=== PATIENT | female | born 1995 | race Caucasian/White ===

== ENCOUNTER 2018-07-22 10:15 | Emergency (ER) | payer BC, OTHER ==
[~2018-07-22] VITALS: Wt 69.8 kg
[~2018-07-22 10:15] MED LIST: LEVO175T2 PO
[2018-07-22] MEDS ORDERED: LIDOCAINE 4% CR TOP ONE (11:30)
--- NOTE | 2018-07-22 11:31 | ERD ---
ER Documentation Chief Complaint Chief Complaint SYNCOPE TODAY, HAS LEFT EYE LID LAC HPI 23-year-old female, with history of anemia, presents to the emergency department with her mother, for evaluation of a near fainting episode that occurred in the morning, when the patient woke up to go to the restroom, the event lasted less than 10 seconds, losing balance and hitting the left eyelid. The patient denies any preceding chest pain, palpitations, shortness of breath. No history of previous episodes. The patient denies any personal history of cardiac arrhythmias, neurologic disorders. No family history of heart disease or pre mature . ROS All systems reviewed and are negative except as per history of present illness. Medications Home Meds Active Scripts Acetaminophen* (Tylenol*) 325 Mg Tablet, 2 TAB PO Q6 PRN for PAIN AND OR ELEVATED TEMP, #20 TAB Prov:MONIKA CRUZ MD 07/22/18 Ferrous Sulfate* (Ferrous Sulfate*) 325 Mg Tabec, 325 MG PO BID for 30 Days, #60 TAB Prov:MONIKA CRUZ MD 07/22/18 Reported Medications Levothyroxine Sodium* (Synthroid*) 175 Mcg Tablet, 1 TAB PO DAILY 02/18/11 Allergies Allergies: Coded Allergies: No Known Allergy (Unverified , 06/24/13) PMhx/Soc Medical and Surgical Hx: pt denies Surgical Hx Hx Alcohol Use: No Hx Substance Use: No Hx Tobacco Use: No Smoking Status: Never smoker FmHx Family History: No diabetes, No coronary disease Physical Exam Vitals Vital Signs Date Temp Pulse Resp B/P (MAP) Pulse Ox O2 O2 Flow FiO2 Time Delivery Rate 07/22/18 98.3 81 18 103/78 99 Room Air 13:45 (86) 07/22/18 98.1 95 18 108/75 99 10:23 (86) Physical Exam Patient alert, oriented, vital signs stable. HEAD: Normocephalic, atraumatic. EYES: PERRLA, EOMI, Sclera and conjunctiva appear normal. Left eyelid with 1 cm linear laceration. NOSE: Clear and patent nostrils. EARS: Canals clear, tympanic membranes WNL. MOUTH: normal lips and tongue, no oral lesions. THROAT: Normal oropharynx, no tonsillar exudates. NECK: Supple, No lymphadenopathy. Full ROM without pain or tenderness. HEART: RRR, no rubs, murmurs, clicks or gallops. LUNGS: Clear to auscultation. ABDOMEN: Soft, non-tender without masses or hepatosplenomegaly. EXTREMITIES: No edema bilaterally. BACK: Full ROM, no deformity, normal back exam NEURO: Cranial nerves grossly intact, no motor or sensory deficit SKIN: No rashes, no petechia. Result Diagram: 07/22/18 1208 07/22/18 1208 Results 24 hrs Laboratory Tests Test 07/22/18 12:08 White Blood Count 5.9 10^3/ul Red Blood Count 3.01 10^6/ul Hemoglobin 9.0 g/dl Hematocrit 28.0 % Mean Corpuscular Volume 93.0 fl Mean Corpuscular Hemoglobin 29.9 pg Mean Corpuscular Hemoglobin Concent 32.1 g/dl Red Cell Distribution Width 15.5 % Platelet Count 186 10^3/UL Mean Platelet Volume 12.2 fl Immature Granulocytes % 0.200 % Neutrophils % 66.3 % Lymphocytes % 26.4 % Monocytes % 5.6 % Eosinophils % 0.7 % Basophils % 0.8 % Nucleated Red Blood Cells % 0.0 /100WBC Immature Granulocytes # 0.010 10^3/ul Neutrophils # 3.9 10^3/ul Lymphocytes # 1.6 10^3/ul Monocytes # 0.3 10^3/ul Eosinophils # 0.0 10^3/ul Basophils # 0.1 10^3/ul Nucleated Red Blood Cells # 0.0 10^3/ul Sodium Level 141 mmol/L Potassium Level 4.6 mmol/L Chloride Level 102 mmol/L Carbon Dioxide Level 27 mmol/L Anion Gap 12 Blood Urea Nitrogen 14 mg/dl Creatinine 0.88 mg/dl Est Glomerular Filtrat Rate mL/min > 60 mL/min Glucose Level 97 mg/dl Calcium Level 9.7 mg/dl Serum HCG, Qualitative NEGATIVE Current Medications Medications Dose Sig/Raz Start Time Status Last (Trade) Ordered Route PRN Stop Time Admin Dose Reason Admin Lidocaine 1 applic ONCE ONCE 07/22/18 DC 07/22/18 (Lmx 4% Plus) TOP 11:30 11:50 07/22/18 11:35 DIAGNOSTIC IMAGING REPORT Patient: KEVIN METCALF : 1995 Age: 23 Sex: F MR #: [id number] DOS: 07/22/18 1135 Ordering MD: MONIKA CRUZ MD Location: [facility] Room/Bed: PROCEDURE: CT Brain without contrast. CLINICAL INDICATION: Syncope. TECHNIQUE: A CT of the brain without contrast was performed utilizing axial sections from the skull base through the vertex. One or more the following does reduction techniques were utilized: Automated exposure control, adjustment of the mA/ or kV according to patient's size, or use of iterative reconstruction technique. Total exam CTDIvol is 39 MGy and DLP is 634 mGy-cm. DICOM images are available. COMPARISON: None. FINDINGS: The ventricles and sulci are age-appropriate. There is no intracranial hemorrhage, mass effect or midline shift. No abnormal intra-axial or extra- axial fluid collections are seen. The lora/white matter differentiation is preserved. No acute skull abnormality is noted. The visualized paranasal sinuses are essentially clear. IMPRESSION: 1. No acute intracranial hemorrhage, transcortical infarction or mass effect. Procedures/MDM Vital signs stable, Physical exam unremarkable, neurovascular exam intact. Differential diagnosis include but not limited to dehydration, cardiac arrhythmia, , Mnire's disease, vestibular neuronitis, migraine, vertigo, side effects of the medications, hypoglycemia. Low suspicion for acute coronary event. Pertinent Data: 12 Lead ECG: Sinus rhythm, no ST changes, normal T wave, normal intervals Labs: CBC: Anemia. CT head: Normal Urine : Negative. Physical examination and clinical presentation consistent most likely with vasovagal episode and laceration of the left eyelid. Vital signs stable, the patient was evaluated for foreign body, open fracture, nerve/vascular/tendon injury. Neurovascular exam intact. Pertinent data: Procedure: Laceration repair The procedure was explained and consent obtained. Anesthesia: Topical lidocaine 4% Location: Left upper eyelid Tendon/Joint/Nerves: No injury Foreign body: None detected after copious irrigation and exploration Technique: Steri-Strips Complexity: No subcutaneous sutures/mucosal repair/edge excision Post Closure Length: 1 cm The patient tolerated the procedure well without complications. clinical impression and possible complications like infection and a scar where discussed with the patient who agreed with management. The patient is stable to be treated outpatient and will be discharged home with a Rx for acetaminophen, some side effects of prescribed medications (headache, rash, nausea, vomiting, diarrhea, interactions with other medications) were reviewed. The patient was instructed to follow up with the primary care provider in the next 48h for wound check. If symptoms persist, worsen or new symptoms develop, then patient should return to the ED immediately. Instructions explained and given directly by me to the patient with acknowledgment and demonstrated understanding. Disclaimer: Inadvertent spelling and grammatical errors are likely due to EHR/dictation software use and do not reflect on the overall quality of patient care. Also, please note that the electronic time recorded on this note does not necessarily reflect the actual time of the patient encounter. Departure Diagnosis: Primary Impression: Syncope Additional Impressions: Left eyelid laceration Anemia Condition: Stable Patient Instructions: Anemia, Iron Deficiency (Adult) Additional Instructions: Thank you very much for allowing us to participate in your care. Your health and safety is our top priority at [facility]. The evaluation in the emergency department has been done to rule out an acute emergency, therefore, chronic conditions like malignancy or other diseases have not been evaluated; therefore, you need to follow up with a primary care provider in the next 48h. If symptoms persist, worsen or new symptoms develop, then patient should return to the ED immediately. Call your primary care doctor TOMORROW for an appointment during the next 2-4 days and bring all the information provided. Have prescriptions filled and follow precisely the directions on the label. If the symptoms get worse and your provider is unavailable, return to the Emerg ency Department immediately. MONIKA CRUZ MD Jul 22, 2018 11:31
[2018-07-22] MEDS ORDERED: ACET325T33 PO (13:22)
[2018-07-22] MEDS ORDERED: FER325 PO (13:22)
[2018-07-22 13:45] VITALS: BP 103/78; PULSE 81; RESP 18
== END 2018-07-22 13:47 | disposition home or self-care (01) ==
LOC: FTE 10:15 → EDSEX 10:15 → FTE 13:47
DX: R55 Syncope and collapse (principal); S01.112A Laceration without foreign body of left eyelid and periocular area, initial encounter; D64.9 Anemia, unspecified; W22.8XXA Striking against or struck by other objects, initial encounter; Y92.9 Unspecified place or not applicable
CPT/HCPCS: 36415; 70450; 80048; 84703; 85025; 86850; 86900; 86901; 93005